=== PATIENT | female | born 1990 | race Caucasian/White ===

== ENCOUNTER → 2017-03-25 11:22 | Outpatient (CLI) | payer OTHER, SELFPAY ==
[2017-03-25 10:40] VITALS: BP 130/82; BMI 41.9
[2017-03-25 12:33] LABS: Absolute Lymphocyte Count 1.52 X10^3/ul (0.83-4.51); Absolute Neutrophil Count 9.9 X10^3/uL (2.0-7.7); Basophil# 0.02 X10^3/uL; Basophil% 0.2 % (0-1); Eosinophil# 0.11 X10^3/uL; Eosinophils% 0.9 % (0-5); Hematocrit 34.1 % (37-47); Hemoglobin 11.1 g/dl (12.0-15.0); Lymphocyte # 1.52 X10^3/ul (4.0); Lymphocyte % 12.5 % (19-41); Mean Corp Hgb Conc 32.6 g/gl (32-36); Mean Corpuscular Hgb 27.5 pg (27.0-32.0); Mean Corpuscular Volume 84.4 fL (81-99); Monocyte# 0.54 X10^3/uL; Monocyte% 4.4 % (0-10); Neutrophil # 9.91 X10^3/uL (2.7-7.7); Neutrophil % 81.6 % (47-70); Platelet Count 310 K/mm3 (150-450); RBC Distribution Width CV 13.7 % (11.6-14.6); RBC Distribution Width SD 41.2 fl (35.1-43.9); Red Blood Count 4.04 M/mm3 (4.2-5.4); White Blood Count 12.2 K/mm3 (4.4-11.0)
[2017-03-25 12:42] LABS: POSITIVE COUNT NO; POSITIVE DIFFERENTIAL NO; POSITIVE MORPHOLOGY NO
[2017-03-25 12:54] LABS: ALB/GLOB Ratio 0.7 RATIO (0.9-2.4); AST(SGOT) 9 U/L (15-37); Alanine Aminotransfer ALT/SGPT 19 U/L (13-56); Albumin, Serum 2.6 g/dL (3.2-5.0); Alkaline Phosphatase 85 U/L (45-117); Anion Gap 10 (5-15); BUN 4 mg/dL (7-18); BUN/Creat Ratio 10.9 RATIO (10-20); Calcium,Total 8.2 mg/dL (8.5-10.1); Chloride 106 mmol/L (98-107); Creatinine, Serum 0.37 mg/dL (0.55-1.02); EST Glomerular Filtration Rate 227 mL/min (>60); Est Glom Filt Rate - Afr Amer 275 mL/min (>60); Globulin 3.9 g/dL (2.2-4.2); Glucose 122 mg/dL (70-110); Glucose Challenge Gest 1H 50g 122 mg/dL (70-140); LDH 174 U/L (84-246); Potassium 3.4 mmol/L (3.5-5.1); Protein, Total 6.5 g/dL (6.4-8.2); Sodium Level 138 mmol/L (136-145); Uric Acid 3.1 mg/dL (2.6-6.0)
== END ==
LOC: LAB 11:24
PROVIDERS: Family Provider Family Medicine; PCP Family Medicine; Visit Provider Obstetrics & Gynecology
DX: O99.350 Diseases of the nervous system complicating pregnancy, unspecified trimester (principal); G43.909 Migraine, unspecified, not intractable, without status migrainosus; Z3A.00 Weeks of gestation of pregnancy not specified
CPT/HCPCS: 36415; 80053; 82950; 83615; 84550; 85025

== ENCOUNTER → 2017-04-15 13:09 | Outpatient (CLI) | payer OTHER, SELFPAY ==
--- NOTE | 2017-04-15 13:11 | US_ITS ---
STUDY: SECOND AND THIRD TRIMESTER OBSTETRICAL ULTRASOUND - LIMITED REASON FOR EXAM: Female, 26 years old. Evaluate growth. LMP: 09/01/2016. PRIOR ULTRASOUND: 01/20/2017. TECHNIQUE: Transabdominal ultrasound evaluation was performed. FINDINGS: There is a single intrauterine fetus. The fetus is in a cephalic presentation. There is demonstrated cardiac activity with a heart rate of 156 bpm. There is a normal amniotic fluid volume. The largest amniotic fluid pocket measures 6.6 cm. The amniotic fluid index (CESAR) is 7.6 cm. The placenta is anterior in location and is not low lying. There are Grade 1 placental changes. The cervix measures 4.1 cm cm in length. There is a complex hypoechoic area in the placenta measuring by 3.3 x 2.9 x 3.5 cm which could represent venous jarrell. BIOMETRY: BPD: 86 mm: 34 weeks, 6 days HC: 308 mm: 34 weeks, 3 days AC: 297 mm: 33 weeks, 5 days FL: 64 mm: 33 weeks, 0 days Age by LMP: 32 weeks, 2 days. KEVIN by LMP: 06/08/2017. age by prior US: 20 weeks, 1 days. KEVIN by prior US: 06/08/2017. age by current US: weeks, 0 days. KEVIN by current US: 05/27/2017. Estimated weight: 2234 grams, +/- 326 grams, 81 percentile. Gender: Indeterminant US/OB Limited With Biometrics IMPRESSION: Single live intrauterine fetus in cephalic presentation with an estimated gestational age of 34 weeks. KEVIN is 05/27/2017. The growth is approximately 12 days ahead when compared to previous examination. Electronically Signed: Amrit Ordaz MD at 12:26 EST Tel , Service support ,
== END ==
PROVIDERS: Family Provider Family Medicine; PCP Family Medicine; Visit Provider Nurse Practitioner Women's Health
DX: O09.93 Supervision of high risk pregnancy, unspecified, third trimester (principal); Z3A.00 Weeks of gestation of pregnancy not specified
CPT/HCPCS: 76816

== ENCOUNTER → 2017-04-15 16:15 | Outpatient (CLI) | payer OTHER, SELFPAY | PROVIDERS: Family Provider Family Medicine; PCP Family Medicine; Visit Provider Nurse Practitioner Women's Health | DX: O09.93 Supervision of high risk pregnancy, unspecified, third trimester (principal); Z3A.00 Weeks of gestation of pregnancy not specified | CPT/HCPCS: 87086 ==

== ENCOUNTER → 2017-04-29 20:58 | Outpatient (CLI) | payer OTHER, SELFPAY | PROVIDERS: Visit Provider Obstetrics & Gynecology | DX: O09.93 Supervision of high risk pregnancy, unspecified, third trimester (principal); Z3A.00 Weeks of gestation of pregnancy not specified | CPT/HCPCS: 87086 ==

== ENCOUNTER → 2017-05-13 10:21 | Outpatient (CLI) | payer OTHER, SELFPAY ==
--- NOTE | 2017-05-13 10:23 | US_ITS ---
STUDY: SECOND AND THIRD TRIMESTER OBSTETRICAL ULTRASOUND - LIMITED REASON FOR EXAM: Female, 26 years old. growth LMP: 09/01/2016 PRIOR ULTRASOUND: 04/20/2017 TECHNIQUE: Transabdominal ultrasound evaluation was performed. FINDINGS: There is a single intrauterine fetus. The fetus is in a cephalic presentation. There is demonstrated cardiac activity with a heart rate of 156 bpm. There is a normal amniotic fluid volume. The largest amniotic fluid pocket measures 5 x 3 cm. The amniotic fluid index (CESAR) is 8 cm. The placenta is anterior in location and is not low lying. There are avascular hypoechoic areas with peripheral rim increased in numbers and distribution since previous exam. There are Grade 2 placental changes. The cervix measures 5.4 cm in length. BIOMETRY: BPD: 9.4 cm: 38 weeks, 3 days HC: 33.6 cm: 38 weeks, 4 days AC: 34.7 cm: 38 weeks, 5 days FL: 7.4 cm: 38 weeks, 1 days Age by LMP: 36 weeks, 2 days. KEVIN by LMP: 06/08/2017. age by prior US: 38 weeks, 0 days. KEVIN by prior US: 05/27/2017. age by current US: 38 weeks, 4 days. KEVIN by current US: 05/23/2017. Estimated weight: 3491 grams, +/- 510 grams, 95 percentile. Gender: Indeterminant US/OB Limited With Biometrics IMPRESSION: 1. Single live intrauterine vertex presentation of 38 week 4 day gestation with an KEVIN of 05/23/2017 and KEVIN by prior ultrasound 05/27/2017. 2. Anterior grade 2 placenta, not low lying. Hypoechoic avascular area within the placenta have increased in distribution and numbers. Possible venous lakes. 3. Estimated weight 3491g and 95 percentile. 4. Normal amniotic fluid index. 5. Cervix length approximately 4 x 4 centimeters. Electronically Signed: Karley Vargas MD at 10:09 EDT , Service support ,
== END ==
PROVIDERS: Family Provider Family Medicine; PCP Family Medicine; Visit Provider Obstetrics & Gynecology
DX: O09.93 Supervision of high risk pregnancy, unspecified, third trimester (principal); Z3A.00 Weeks of gestation of pregnancy not specified
CPT/HCPCS: 76816

== ENCOUNTER → 2017-05-13 16:32 | Outpatient (CLI) | payer OTHER, SELFPAY ==
[2017-05-13 18:13] LABS: Group B Strep DNA By PCR Negative (Negative); Internal Control PASS; Specimen Processing Control PASS
[2017-05-13 18:14] LABS: Probe Check PASS
== END ==
PROVIDERS: Visit Provider Obstetrics & Gynecology
DX: O09.93 Supervision of high risk pregnancy, unspecified, third trimester (principal); Z3A.00 Weeks of gestation of pregnancy not specified
CPT/HCPCS: 87081; 87653

== ENCOUNTER → 2017-05-20 10:11 | Outpatient (CLI) | payer OTHER, SELFPAY ==
[2017-05-20 11:15] LABS: Absolute Lymphocyte Count 1.42 X10^3/ul (0.83-4.51); Absolute Neutrophil Count 10.4 X10^3/uL (2.0-7.7); Basophil# 0.02 X10^3/uL; Basophil% 0.2 % (0-1); Eosinophil# 0.14 X10^3/uL; Eosinophils% 1.1 % (0-5); Hematocrit 35.3 % (37-47); Hemoglobin 11.5 g/dl (12.0-15.0); Lymphocyte # 1.42 X10^3/ul (4.0); Lymphocyte % 11.4 % (19-41); Mean Corp Hgb Conc 32.6 g/gl (32-36); Mean Corpuscular Volume 82.9 fL (81-99); Mean Platelet Vol. 9.9 fl (6.2-12.0); Monocyte# 0.45 X10^3/uL; Monocyte% 3.6 % (0-10); Neutrophil # 10.41 X10^3/uL (2.7-7.7); Neutrophil % 83.3 % (47-70); POSITIVE COUNT NO; POSITIVE DIFFERENTIAL NO; POSITIVE MORPHOLOGY NO; Platelet Count 297 K/mm3 (150-450); RBC Distribution Width SD 40.9 fl (35.1-43.9); Red Blood Count 4.26 M/mm3 (4.2-5.4); White Blood Count 12.5 K/mm3 (4.4-11.0)
[2017-05-20 11:24] LABS: Protein, Urine (Random) 27.1 mg/dL (<11.9); Protein:Creat Ratio 127 mg/g CRE (0-200)
[2017-05-20 11:45] LABS: ALB/GLOB Ratio 0.6 RATIO (0.9-2.4); AST(SGOT) 13 U/L (15-37); Alanine Aminotransfer ALT/SGPT 18 U/L (13-56); Albumin, Serum 2.4 g/dL (3.2-5.0); Alkaline Phosphatase 133 U/L (45-117); Anion Gap 8 (5-15); BUN 5 mg/dL (7-18); BUN/Creat Ratio 10.5 RATIO (10-20); Calcium,Total 8.4 mg/dL (8.5-10.1); Chloride 105 mmol/L (98-107); Creatinine, Serum 0.48 mg/dL (0.55-1.02); EST Glomerular Filtration Rate 168 mL/min (>60); Est Glom Filt Rate - Afr Amer 203 mL/min (>60); Globulin 4.3 g/dL (2.2-4.2); Glucose 111 mg/dL (74-106); LDH 193 U/L (84-246); Potassium 3.7 mmol/L (3.5-5.1); Protein, Total 6.7 g/dL (6.4-8.2); Sodium Level 139 mmol/L (136-145); Uric Acid 3.4 mg/dL (2.6-6.0)
== END ==
PROVIDERS: Nurse Practitioner Women's Health; Family Provider Family Medicine; PCP Family Medicine; Visit Provider Obstetrics & Gynecology
DX: O12.10 Gestational proteinuria, unspecified trimester (principal); Z3A.00 Weeks of gestation of pregnancy not specified
CPT/HCPCS: 36415; 80053; 82570; 83615; 84156; 84550; 85025

== ENCOUNTER 2017-05-25 06:07 | Inpatient (IN) | payer OTHER, SELFPAY ==
[2017-05-25] MEDS: Lactated Ringers 1,000 ML 50 ML IV (06:43)
[2017-05-25 07:24] LABS: Hematocrit 35.4 % (37-47); Hemoglobin 11.3 g/dl (12.0-15.0); Mean Corp Hgb Conc 31.9 g/gl (32-36); Mean Corpuscular Hgb 26.3 pg (27.0-32.0); Mean Corpuscular Volume 82.3 fL (81-99); Mean Platelet Vol. 9.9 fl (6.2-12.0); Platelet Count 299 K/mm3 (150-450); RBC Distribution Width CV 14.2 % (11.6-14.6); RBC Distribution Width SD 42.4 fl (35.1-43.9); White Blood Count 15.4 K/mm3 (4.4-11.0)
[2017-05-25 07:25] VITALS: BMI 44.5
[2017-05-25 07:28] LABS: Scan Indicated on CBC? Y/N NO
[2017-05-25] MEDS: Oxytocin 30 units/NS 500 ml 30 UNITS/500 ML IV.SOLN 334 UNITS IV (07:37)
[2017-05-25] MEDS: Methylergonovine 0.2 MG/ML Ampul IM (07:42)
[2017-05-25] MEDS: miSOPROStol 200 MCG Tablet 1000 MCG RECTAL (07:44)
[2017-05-25] MEDS: Oxytocin 30 units/NS 500 ml 30 UNITS/500 ML IV.SOLN 167 UNITS IV (08:07)
[2017-05-25 10:00] VITALS: BP 138/72; PULSE 107; RESP 16; TEMP 36.6; O2SAT 97
[2017-05-25 14:00] VITALS: BP 134/71; PULSE 80; RESP 20; TEMP 37.3; O2SAT 97
--- NOTE | 2017-05-25 15:27 | PCM.HP.OB ---
- Problem List (1) Proteinuria affecting Status: Acute Qualifiers: (2) with history of infertility Status: Acute Qualifiers: (3) PCOS (polycystic ovarian syndrome) Status: Acute (4) Asymptomatic bacteriuria during Status: Acute Comment: repeat urine culture neg (5) Maternal asthma complicating Status: Acute Comment: per pcp- qvar daily, albuterol PRN (6) Adult body mass index 40 and over Status: Acute Comment: weekly nsts after 32 weeks and growth us every 4 weeks (7) Supervision of high risk in third trimester Status: Acute Comment: PRR KEVIN 06/08/17 girl Vivian Leung arina History Date of Admission: 05/25/17 Final KEVIN: 06/08/17 Gestational age: 38 Weeks and 0 Days History of this : 26 yo @ 38 weeks presents IAL and delivered precipitously Pertinent Past Medical History: Past Medical History (Last Reviewed 05/20/17 @ 09:44 by Isabel Man) Asthma (Acute) Back problem (Acute) Infertility (Acute) PCOS (polycystic ovarian syndrome) (Acute) All Active Problems (Last Reviewed 05/20/17 @ 09:44 by Isabel Man) Proteinuria affecting (Acute) with history of infertility (Acute) PCOS (polycystic ovarian syndrome) (Acute) Asymptomatic bacteriuria during (Acute) Maternal asthma complicating (Acute) Migraine (Acute) Adult body mass index 40 and over (Acute) Supervision of high risk in third trimester (Acute) Mom's Labs & Results 05/25/17 05/25/17 06:43 06:43 WBC 15.4 H RBC 4.30 Hgb 11.3 L Hct 35.4 L MCV 82.3 MCH 26.3 L MCHC 31.9 L RDW 14.2 RDW Differential 42.4 Plt Count 299 MPV 9.9 Blood Type O POSITIVE Antibody Screen NEGATIVE Course Did the patient receive Yes care? Labs Blood Type: O RH: POSITIVE RPR/VDRL/Syphilis Nonreactive Rubella status Immune HbSAg Negative Date Done: 11/04/16 Chlamydia Negative Gonorrhea Negative HIV/AIDS Non-Reactive Group B Strep: Negative Current Obstetrical History Gestational Diabetes No Incompetent Cervix No Infertility Yes: took 7 years to get IUGR No Macrosomia No Hypertension/Pre-eclampsia Yes: high blood pressures, no meds Placenta Previa/Abruption No PTL/PROM No Uterine anomaly No Oligohydramnios No Polyhydramnios No Multiple gestation No Past Medical History Asthma Yes Diabetes No Hypertension No Heart disease No Mitral valve prolapse No Neurologic/Seizure disorder/ No Migraines Kidney disease No Liver disease No Varicosities No Clotting disorders/Hx of DVT No Thyroid Dysfunction No Other medical diseases No Psychiatric disorders No Major trauma No Abnormal PAP smear No Sleep apnea No Mammogram in the last 2 years No Social History Marital Status: Alleged father Chandu Hx Smoking No Smoking Status Former smoker Allergies No Known Allergies Allergy (Verified 05/25/17 07:38) Current Medications Acetaminophen (Tylenol) 1,000 mg PO Q8H PRN PRN PRN Reason: MILD PAIN (1-3/10)/Temp>99.6F Bisacodyl (Dulcolax) 10 mg RECTAL UD PRN PRN Reason: If no BM Dibucaine (Dibucaine) 1 applic TOPICAL TID PRN PRN; Protocol PRN Reason: Discomfort Hydrocortisone (Hytone) 1 applic TOPICAL TID PRN PRN; Protocol PRN Reason: Discomfort Lactated Ringer's () 1,000 mls @ 0 mls/hr IV .Q0M RODRIGUE PRN Reason: KVO Methylergonovine Maleate (Methergine) 0.2 mg IM X1 PRN PRN Reason: Excess bleeding/uterine atony Last Admin: 05/25/17 07:42 Dose: 0.2 mg Naproxen (Naprosyn) 250 - 500 mg PO Q8H PRN PRN PRN Reason: MILD PAIN (1-3/10) Ondansetron HCl (Zofran) 4 mg IV Q4H PRN PRN PRN Reason: Nausea Oxycodone HCl (Oxyir) 5 - 10 mg PO Q4H PRN PRN PRN Reason: MOD-SEVERE PAIN (4-10/10) Promethazine HCl (Phenergan Iv) 12.5 mg IV Q4H PRN PRN PRN Reason: NAUSEA/VOMITING Senna/Docusate Sodium (Senokot-S, Jayla-Colace) 1 - 2 tablet PO DAILY PRN PRN PRN Reason: Constipation Simethicone (Mylicon) 80 mg PO PCHS PRN PRN Reason: Indigestion/Stomach pain Sodium Chloride () 5 - 15 ml IV UD PRN PRN Reason: SALINE FLUSH Smoking Status: Never smoker Alcohol: None Drug Use: none Number of Fetus(es): 1 - 140s moderate variability occasional variable Review of Systems Constitutional: Denies: Chills, Fever, Weight Change HEENT: Denies: Head Aches, Sinus Congestion, Sinus Drainage Cardiovascular: Denies: Chest Pain, Palpitations Respiratory: Denies: Cough, Shortness of breath at rest, Sputum production Gastrointestinal: Reports: Abdominal Pain. Denies: Nausea, Vomiting Genitourinary: Denies: Dysuria Gynecological: Reports: Vaginal bleeding, Vaginal discharge Musculoskeletal: Denies: Joint Pain, Joint Tenderness Skin: Denies: Rash, Wounds Neurological: Denies: Numbness, Tingling, Focal weakness Psychiatric: Denies: Anxiety, Depression Hematologic/ Lymphatic: Denies: Easy Bruising, Easy Bleeding Physical Exam Vitals: Vital Signs Temp Pulse Resp BP Pulse Ox 97.8 F 107 H 16 138/72 H 97 05/25/17 10:00 05/25/17 10:00 05/25/17 10:00 05/25/17 10:00 05/25/17 10:00 General: Alert, Oriented x3, No apparent distress Cardiovascular: Regular rate Lungs: Normal air movement Abdomen: Soft, Non Tender, Gravid Extremities:: No edema Estimated gestational size: Appropriate for gestational size Cervix Dilation (cm): 7 Station: 0 Effacement (%): 90 Assessment/Plan 26 yo @ 38 weeks IAL precipitous delivery pudendal block placed and delivered with mild hemorrhage
--- NOTE | 2017-05-25 15:33 | PCM.OB.VAG ---
- Problem List (1) Proteinuria affecting Status: Acute Qualifiers: (2) with history of infertility Status: Acute Qualifiers: (3) PCOS (polycystic ovarian syndrome) Status: Acute (4) Asymptomatic bacteriuria during Status: Acute Comment: repeat urine culture neg (5) Maternal asthma complicating Status: Acute Comment: per pcp- qvar daily, albuterol PRN (6) Adult body mass index 40 and over Status: Acute Comment: weekly nsts after 32 weeks and growth us every 4 weeks (7) Supervision of high risk in third trimester Status: Acute Comment: PRR KEVIN 06/08/17 girl Vivian Leung arina Vaginal Delivery Maternal Presentation: Active Labor precipitous delivery 38 weeks Amniotic Membrane Rupture Type: Spontaneous at home Amniotic Fluid Description: Clear Final KEVIN: 06/08/17 Gestational age: 38 Weeks and 0 Days Date of Procedure: 05/25/17 Pre-Operative Diagnosis: ial Post-Operative Diagnosis: same Surgery/ Procedure Performed: Spontaneous Vaginal Delivery Type of Anesthesia: Pudendal block with 1% lidocaine Description of Procedure: Patient precipitously proceeded to complete and was having discomfort and requested pudendal block. Vagina was prepped with Betadine and bilateral ischial spines were identified and 2 cm medial and posterior to the initial spines 10 cc of lidocaine was injected into the area without complication. Patient began pushing and delivered the head in the KARTHIKEYAN presentation. The head was delivered atraumatically . The anterior and posterior shoulders delivered without complication followed by the rest of the infant and the was placed on the maternal abdomen. Delayed cord clamping was employed for approximately 60 seconds. Cord was clamped and cut and gentle traction was applied to the cord and the placenta delivered spontaneously immediately following it was noted to be intact with three-vessel cord. The perineum and vagina were inspected and noted to have no laceration. Mild hemorrhage was encountered and both Methergine and Cytotec were given and bimanual massage was employed. EBL was 700 cc. Patient and tolerated delivery well. Presentation: KARTHIKEYAN
[2017-05-25 15:57] VITALS: BP 133/71; PULSE 106; RESP 16; TEMP 37.5; O2SAT 98
[2017-05-25] MEDS: Acetaminophen 500 MG Tablet 1000 MG PO (19:14)
[2017-05-25 20:30] VITALS: BP 123/67; PULSE 104; RESP 16; TEMP 36.2; O2SAT 98
[2017-05-26 00:30] VITALS: BP 116/55; PULSE 93; RESP 16; TEMP 36.2; O2SAT 98
[2017-05-26 04:45] VITALS: BP 120/66; PULSE 98; RESP 18; TEMP 36.2; O2SAT 97
[2017-05-26 07:30] VITALS: BP 113/68; PULSE 91; RESP 16; TEMP 36.3; O2SAT 95
--- NOTE | 2017-05-26 07:49 | PCM.PN.OB ---
Subjective: Doing well. Denies CP, SOB, NV. Denies pain. - Physical Exam General: Alert, Oriented x3 Abdomen: Soft, Non Tender, - - FF below U Vital Signs Temp Pulse Resp BP Pulse Ox 97.4 F L 91 16 113/68 95 05/26/17 07:30 05/26/17 07:30 05/26/17 07:30 05/26/17 07:30 05/26/17 07:30 Oxygen Delivery Method Room Air Weight: 293 lb Body Mass Index (BMI) 44.5 Intake and Output for Last 24 Hours 05/24/17 05/25/17 05/26/17 23:59 23:59 23:59 Output Total 50 / 50 Balance -50 / -50 Laboratory Tests Past 24 Hrs 05/25/17 06:43 Blood Type O POSITIVE Antibody Screen NEGATIVE Medical Necessity - Tobacco Use Smoking Status: Never smoker Assessment/Plan PPD #1 Routine care. . Doing well. Plans home today.
--- NOTE | 2017-05-26 07:53 | DCINST_ITS ---
Discharge Diet: No Restrictions Discharge Activity: Return to Normal Activity, May not drive while taking narcotic pain medications., May Shower May resume sexual activity in: 4-6 weeks Additional Activity Instructions:: Nothing in the vagina for 4-6 weeks. You may return to work/school in 6 weeks. Call your doctor if your incision/area has: Continuous Slow Oozing, Sudden Increased Bleeding, Increased Pain/ Swelling, Increased Redness, Foul Smelling Discharge Additional Instructions: If you experience any of the following, contact your healthcare provider. * Bleeding that soaks a pad every hour for 2 hours * Fever 100.4 or higher * Unrelieved incision or abdominal pain * Swelling, redness, discharge or bleeding from your incision or episiotomy site * Your incision begins to separate * Problems urinating (including inability to urinate or burning while urinating) . * Visual changes * Severe headache * Flu-like symptoms * Pain or redness in one of both of your breasts * Pain, warmth, tenderness or swelling in your legs, especially the calf area * Frequent nausea and vomiting * Symptoms of depression or anxiety If you experience any of the following, call 911 or go to the nearest Emergency Room. * Chest pain * Problems breathing * Seizure activity * Partial or complete paralysis of a body part, slurred speech, weakness or drooping of the face, or a sudden inability to walk or hold your balance Allergies/Adverse Reactions: Allergies No Known Allergies Allergy (Verified 05/25/17 07:38) Medications to take at Discharge albuterol sulfate HFA 90 mcg/actuation aerosol inhaler 1 puff INHALATION Q6H 09/06 beclomethasone dipropionate 80 mcg/actuation aerosol inhaler 1 puff INHALATION QAM 01/27/17 vitamin,calcium,xkjlrtoe-oatf-mhchh acid tablet 1 tab PO QDAY 01/27/17 When: Call to make an appointment with your doctor in 6 weeks. If you had elevated Blood Pressure or 4th degree laceration you will need to be seen in 2 weeks. Primary Care Physician: Flor Elizondo PA-C [Primary Care Provider] -
--- NOTE | 2017-05-26 07:53 | PCM.DCVAG ---
Discharge Diet: No Restrictions Discharge Activity: Return to Normal Activity, May not drive while taking narcotic pain medications., May Shower May resume sexual activity in: 4-6 weeks Additional Activity Instructions:: Nothing in the vagina for 4-6 weeks. You may return to work/school in 6 weeks. Call your doctor if your incision/area has: Continuous Slow Oozing, Sudden Increased Bleeding, Increased Pain/ Swelling, Increased Redness, Foul Smelling Discharge Additional Instructions: If you experience any of the following, contact your healthcare provider. Bleeding that soaks a pad every hour for 2 hours Fever 100.4 or higher Unrelieved incision or abdominal pain Swelling, redness, discharge or bleeding from your incision or episiotomy site Your incision begins to separate Problems urinating (including inability to urinate or burning while urinating). Visual changes Severe headache Flu-like symptoms Pain or redness in one of both of your breasts Pain, warmth, tenderness or swelling in your legs, especially the calf area Frequent nausea and vomiting Symptoms of depression or anxiety If you experience any of the following, call 911 or go to the nearest Emergency Room. Chest pain Problems breathing Seizure activity Partial or complete paralysis of a body part, slurred speech, weakness or drooping of the face, or a sudden inability to walk or hold your balance Allergies/Adverse Reactions: Allergies No Known Allergies Allergy (Verified 05/25/17 07:38) Medications to take at Discharge albuterol sulfate HFA 90 mcg/actuation aerosol inhaler 1 puff INHALATION Q6H 01/27/17 beclomethasone dipropionate 80 mcg/actuation aerosol inhaler 1 puff INHALATION QAM 01/27/17 vitamin,calcium,gfnfryab-zcev-ppemk acid tablet 1 tab PO QDAY 01/27/17 When: Call to make an appointment with your doctor in 6 weeks. If you had elevated Blood Pressure or 4th degree laceration you will need to be seen in 2 weeks. Primary Care Physician: Flor Elizondo PA-C [Primary Care Provider] -
--- NOTE | 2017-05-26 07:53 | PCM.DC.SUM ---
Discharge Date and Diagnosis Date of Admission: 05/25/17 Hospital Course and Treatment Consultations 05/25/17 06:45 Consult: Anesthesia Routine Comment: Reason For Exam: labor Summary of Care Provided: The patient is a 26 year old F [] Discharge Diet: No Restrictions Discharge Activity: Return to Normal Activity, May not drive while taking narcotic pain medications., May Shower May resume sexual activity in: 4-6 weeks Additional Activity Instructions:: Nothing in the vagina for 4-6 weeks. You may return to work/school in 6 weeks. Call your doctor if your incision/area has: Continuous Slow Oozing, Sudden Increased Bleeding, Increased Pain/ Swelling, Increased Redness, Foul Smelling Discharge Home Medications: Medications to take at Discharge albuterol sulfate HFA 90 mcg/actuation aerosol inhaler 1 puff INHALATION Q6H 01/27/17 beclomethasone dipropionate 80 mcg/actuation aerosol inhaler 1 puff INHALATION QAM 01/27/17 vitamin,calcium,xceeijxe-xkrf-zslge acid tablet 1 tab PO QDAY 01/27/17 Primary Care Physician: Flor Elizondo PA-C [Primary Care Provider] - Medical Necessity - Tobacco Use Smoking Status: Never smoker Meaningful Use Info Meaningful Use Diagnoses (Choose all that apply): None applicable
--- NOTE | 2017-05-26 07:56 | DS.PCM_ITS ---
Discharge Date and Diagnosis Date of Admission: 05/25/17 Hospital Course and Treatment Consultations 05/25/17 06:45 Consult: Anesthesia Routine Comment: Reason For Exam: labor Summary of Care Provided: The patient is a 26 year old F [] Discharge Diet: No Restrictions Discharge Activity: Return to Normal Activity, May not drive while taking narcotic pain medications., May Shower May resume sexual activity in: 4-6 weeks Additional Activity Instructions:: Nothing in the vagina for 4-6 weeks. You may return to work/school in 6 weeks. Call your doctor if your incision/area has: Continuous Slow Oozing, Sudden Increased Bleeding, Increased Pain/ Swelling, Increased Redness, Foul Smelling Discharge Home Medications: Medications to take at Discharge albuterol sulfate HFA 90 mcg/actuation aerosol inhaler 1 puff INHALATION Q6H 09/06 beclomethasone dipropionate 80 mcg/actuation aerosol inhaler 1 puff INHALATION QAM 01/27/17 vitamin,calcium,jnrhqwzd-tzmo-mutmz acid tablet 1 tab PO QDAY 01/27/17 Primary Care Physician: Flor Elizondo PA-C [Primary Care Provider] - Medical Necessity - Tobacco Use Smoking Status: Never smoker Meaningful Use Info Meaningful Use Diagnoses (Choose all that apply): None applicable
[2017-05-26 11:09] VITALS: BP 139/80; PULSE 105; RESP 16; TEMP 36.7; O2SAT 97
== END 2017-05-26 12:00 | disposition home or self-care (01) | DRG 774 ==
PROVIDERS: Admitting Provider Obstetrics & Gynecology; Family Provider Family Medicine; PCP Family Medicine; Visit Provider Obstetrics & Gynecology
DX: O42.02 Full-term premature rupture of membranes, onset of labor within 24 hours of rupture (principal); O72.1 Other immediate postpartum hemorrhage; O12.13 Gestational proteinuria, third trimester; O62.3 Precipitate labor; O34.83 Maternal care for other abnormalities of pelvic organs, third trimester; E28.2 Polycystic ovarian syndrome; O99.52 Diseases of the respiratory system complicating childbirth; J45.998 Other asthma; Z37.0 Single live birth; Z3A.38 38 weeks gestation of pregnancy; Z87.891 Personal history of nicotine dependence; Z87.59 Personal history of other complications of pregnancy, childbirth and the puerperium
CPT/HCPCS: 59050; 85027; 86850; 86900; 99218; J7120; G0378

== ENCOUNTER 2017-06-01 19:30 | Outpatient (CLI) | payer OTHER, SELFPAY | END 2017-06-01 20:45 | disposition home or self-care (01) | LOC: WPOUT 20:01 → WP 20:02 | PROVIDERS: Family Provider Family Medicine; PCP Family Medicine; Visit Provider Obstetrics & Gynecology | DX: Z39.1 Encounter for care and examination of lactating mother (principal) | CPT/HCPCS: 96152 ==

== ENCOUNTER → 2019-01-09 13:36 | Outpatient (CLI) | payer BC, SELFPAY ==
[2019-01-09 13:36] VITALS: BMI 41.9
[2019-01-09 17:42] LABS: Chlamydia Trachomatis by PCR Negative (Negative); Neisserai gonorrhoeae by PCR Negative (Negative); Probe Check PASS; Sample Adequacy Control PASS; Specimen Processing Control PASS
== END ==
LOC: LABSPEC 13:39
PROVIDERS: Family Provider Family Medicine; PCP Family Medicine; Referring Provider Advanced Practice Midwife; Visit Provider Advanced Practice Midwife
DX: Z11.3 Encounter for screening for infections with a predominantly sexual mode of transmission (principal)
CPT/HCPCS: 87491; 87591

== ENCOUNTER → 2019-01-23 11:33 | Outpatient (CLI) | payer BC, SELFPAY ==
[2019-01-09 13:36] VITALS: BMI 41.9
[2019-01-23 14:01] LABS: Absolute Lymphocyte Count 1.61 X10^3/uL (0.83-4.51); Absolute Neutrophil Count 7.2 X10^3/uL (2.0-7.7); Basophil# 0.03 X10^3/uL; Basophil% 0.3 % (0-1); Eosinophil# 0.35 X10^3/uL; Eosinophils% 3.6 % (0-5); Hematocrit 42.4 % (37-47); Hemoglobin 13.7 g/dL (12.0-15.0); Lymphocyte # 1.61 X10^3/ul (4.0); Lymphocyte % 16.5 % (19-41); Mean Corp Hgb Conc 32.3 g/dL (32-36); Mean Corpuscular Hgb 27.5 pg (27.0-32.0); Mean Corpuscular Volume 85.1 fL (81-99); Mean Platelet Vol. 10.1 fl (6.2-12.0); Monocyte# 0.57 X10^3/uL; Monocyte% 5.8 % (0-10); NRBC Flagged by Analyzer 0 % (0-5); Neutrophil # 7.17 X10^3/uL (2.7-7.7); Neutrophil % 73.5 % (47-70); Platelet Count 316 K/mm3 (150-450); RBC Distribution Width CV 13.2 % (11.6-14.6); RBC Distribution Width SD 41.4 fl (35.1-43.9); Red Blood Count 4.98 M/mm3 (4.2-5.4); White Blood Count 9.8 K/mm3 (4.4-11.0)
[2019-01-23 14:04] LABS: Amphetamine Urine VISTA NEGATIVE (<1000 ng/mL); Barbiturate Urine VISTA NEGATIVE (< 200 ng/mL); Benzodiazepine Urine VISTA NEGATIVE (< 200 ng/mL); Cocaine Urine VISTA NEGATIVE (< 300 ng/mL); Ecstacy Urine VISTA NEGATIVE (< 500 ng/mL); Methadone Urine VISTA NEGATIVE (< 300 ng/mL); PCP Urine VISTA NEGATIVE (< 25 ng/mL); THC Urine VISTA POSITIVE (< 50 ng/mL); Vista UDS pH Range 6
[2019-01-23 14:05] LABS: Color, Urine Yellow (Yellow); Glucose, Dipstick Normal (Normal); Ketone-Dipstick Negative (Negative); Leukocyte Esterase-Dipstick 100 /ul (Negative); Nitrite-Dipstick Negative (Negative); Occult Blood-Urine Negative /ul (Negative); Protein-Dipstick 15 mg/dl (Negative); Specific Gravity, Urine 1.015 (1.002-1.030); Urine Bilirubin Dipstick Negative (Negative); Urine Clarity Sl. Cloudy (Clear); Urine Urobilinogen 1 mg/dl (Normal)
[2019-01-23 14:26] LABS: Glucose Challenge Gest 1H 50g 101 mg/dL (70-140); Thyroid Stim Hormone (TSH) 0.94 uIU/mL (0.358-3.74)
[2019-01-23 18:40] LABS: HIV - WCH Non-Reactive (Nonreactive); Hepatitis B Surface Antigen Non-Reactive (Nonreactive); Hepatitis C Antibody Non-Reactive (Nonreactive); Rubella IgG 160.1 IU/mL
[2019-01-24 05:11] LABS: Prenatal RPR NONREACTIVE (NONREACTIVE)
== END ==
LOC: WOBLAB 11:35
PROVIDERS: Visit Provider Advanced Practice Midwife
DX: Z34.81 Encounter for supervision of other normal pregnancy, first trimester (principal)
CPT/HCPCS: 36415; 80307; 81002; 82950; 84443; 85025; 86703; 86762; 86803; 87340

== ENCOUNTER → 2019-06-29 | Outpatient (CLI) | payer BC, SELFPAY ==
[2019-01-09 13:36] VITALS: BMI 41.9
[2019-06-29 15:43] LABS: Hematocrit 38.2 % (37-47); Hemoglobin 12.3 g/dL (12.0-15.0); Mean Corp Hgb Conc 32.2 g/dL (32-36); Mean Corpuscular Hgb 27.8 pg (27.0-32.0); Mean Corpuscular Volume 86.4 fL (81-99); Mean Platelet Vol. 10.3 fl (6.2-12.0); Platelet Count 274 K/mm3 (150-450); RBC Distribution Width CV 13.3 % (11.6-14.6); RBC Distribution Width SD 41.2 fl (35.1-43.9); Red Blood Count 4.42 M/mm3 (4.2-5.4); White Blood Count 13.9 K/mm3 (4.4-11.0)
[2019-06-29 15:55] LABS: Glucose Challenge Gest 1H 50g 96 mg/dL (70-140)
== END | disposition home or self-care (01) ==
LOC: LABSPEC 15:17
PROVIDERS: Referring Provider Obstetrics & Gynecology; Visit Provider Obstetrics & Gynecology
DX: Z34.83 Encounter for supervision of other normal pregnancy, third trimester (principal)
CPT/HCPCS: 82950; 85027

== ENCOUNTER → 2019-07-13 11:18 | Outpatient (CLI) | payer BC, SELFPAY ==
[2019-01-09 13:36] VITALS: BMI 41.9
[2019-07-13 11:58] LABS: Hematocrit 36.5 % (37-47); Hemoglobin 11.7 g/dL (12.0-15.0); Mean Corp Hgb Conc 32.1 g/dL (32-36); Mean Corpuscular Hgb 27.1 pg (27.0-32.0); Mean Corpuscular Volume 84.7 fL (81-99); Mean Platelet Vol. 9.8 fl (6.2-12.0); Platelet Count 301 K/mm3 (150-450); RBC Distribution Width CV 13.2 % (11.6-14.6); RBC Distribution Width SD 41.2 fl (35.1-43.9); Red Blood Count 4.31 M/mm3 (4.2-5.4)
[2019-07-13 12:02] LABS: Prothrombin Time (Protime)PT. 12.3 SECONDS (11.7-14.9)
[2019-07-13 12:03] LABS: Partial Thromboplast Time 31.5 Seconds (24.1-36.2)
[2019-07-13 12:07] LABS: AST(SGOT) 12 U/L (15-37); Alanine Aminotransfer ALT/SGPT 17 U/L (13-56); Creatinine, Serum 0.41 mg/dL (0.55-1.02); EST Glomerular Filtration Rate 195 mL/min (>60); Est Glom Filt Rate - Afr Amer 236 mL/min (>60); Uric Acid 2.7 mg/dL (2.6-6.0)
[2019-07-15 11:43] LABS: 24 Hour Urine Protein 147.2 mg/24HR (<150 MG/24HR); 24HR. UA Prot. Total Volume 1350 mL; Urine Protein (24 Hour) 10.9 mg/dL (<11.9)
== END ==
LOC: WOBLAB 11:19
PROVIDERS: Visit Provider Obstetrics & Gynecology
DX: O14.93 Unspecified pre-eclampsia, third trimester (principal); Z3A.00 Weeks of gestation of pregnancy not specified
CPT/HCPCS: 36415; 82565; 84156; 84450; 84460; 84550; 85027; 85610; 85730

== ENCOUNTER → 2019-08-08 | Outpatient (CLI) | payer BC, SELFPAY ==
[2019-01-09 13:36] VITALS: BMI 41.9
== END | disposition home or self-care (01) ==
LOC: LABSPEC 16:55
PROVIDERS: Visit Provider Obstetrics & Gynecology
DX: Z36.85 Encounter for antenatal screening for Streptococcus B (principal)
CPT/HCPCS: 87081

== ENCOUNTER → 2019-08-15 15:49 | Outpatient (CLI) | payer BC, SELFPAY ==
[2019-01-09 13:36] VITALS: BMI 41.9
[2019-08-15 16:27] LABS: Hematocrit 37.1 % (37-47); Hemoglobin 12.1 g/dL (12.0-15.0); Mean Corp Hgb Conc 32.6 g/dL (32-36); Mean Corpuscular Hgb 26.9 pg (27.0-32.0); Mean Corpuscular Volume 82.6 fL (81-99); Platelet Count 301 K/mm3 (150-450); RBC Distribution Width SD 40.6 fl (35.1-43.9); Red Blood Count 4.49 M/mm3 (4.2-5.4); White Blood Count 13.9 K/mm3 (4.4-11.0)
[2019-08-15 16:34] LABS: Prothrombin Time (Protime)PT. 12.4 SECONDS (11.7-14.9)
[2019-08-15 16:35] LABS: Partial Thromboplast Time 31.9 Seconds (24.1-36.2)
[2019-08-15 16:38] LABS: AST(SGOT) 11 U/L (15-37); Alanine Aminotransfer ALT/SGPT 15 U/L (13-56); Creatinine, Serum 0.53 mg/dL (0.55-1.02); EST Glomerular Filtration Rate 147 mL/min (>60); Est Glom Filt Rate - Afr Amer 177 mL/min (>60); Uric Acid 4.1 mg/dL (2.6-6.0)
== END ==
LOC: WOBLAB 15:51
PROVIDERS: Visit Provider Obstetrics & Gynecology
DX: O13.3 Gestational [pregnancy-induced] hypertension without significant proteinuria, third trimester (principal); Z3A.00 Weeks of gestation of pregnancy not specified
CPT/HCPCS: 36415; 82565; 82570; 84156; 84450; 84460; 84550; 85027; 85610; 85730

== ENCOUNTER 2019-08-20 17:50 | Outpatient (CLI) | payer BC, SELFPAY ==
[2019-01-09 13:36] VITALS: BMI 41.9
[2019-08-20 18:02] VITALS: BMI 43.1
--- NOTE | 2019-08-25 10:17 | OB.TRI.NOTE ---
History of Present Illness Date of Service: 08/20/19 Was patient seen by the physician?: No Reason For Visit: RULE OUT LABOR Date of Service: 08/20/19 Final KEVIN: 09/05/19 Gestational age: 37 Weeks and 4 Days History of Present Illness: 37+ week intrauterine presents with some contractions. care has been unremarkable. Allergies No Known Allergies Allergy (Verified 05/25/17 07:38) - Pertinent Past Medical History Medical History: Past Medical History (Last Reviewed 05/20/17 @ 09:44 by Isabel Man) Asthma Back problem Infertility PCOS (polycystic ovarian syndrome) NST - FHR Rate Baby A NST Reactive:: Yes FHR Category:: Category I Impression/Plan 37+ week intrauterine with false labor. No change after observation. Will discharge to home with routine instructions.
== END 2019-08-20 18:32 | disposition home or self-care (01) ==
LOC: WPOUT 18:00 → OBT 18:01
PROVIDERS: Visit Provider Obstetrics & Gynecology
DX: O47.1 False labor at or after 37 completed weeks of gestation (principal); O99.513 Diseases of the respiratory system complicating pregnancy, third trimester; J45.909 Unspecified asthma, uncomplicated; O99.283 Endocrine, nutritional and metabolic diseases complicating pregnancy, third trimester; E28.2 Polycystic ovarian syndrome; Z3A.37 37 weeks gestation of pregnancy
CPT/HCPCS: 59025; 59050; 99218; G0378

== ENCOUNTER → 2019-08-22 18:05 | Outpatient (CLI) | payer BC, SELFPAY ==
[2019-08-20 18:02] VITALS: BMI 43.1
== END ==
PROVIDERS: Visit Provider Obstetrics & Gynecology
DX: Z11.59 Encounter for screening for other viral diseases (principal)
CPT/HCPCS: 87635; G2023; U0003

== ENCOUNTER 2019-08-30 07:05 | Inpatient (IN) | payer BC, SELFPAY ==
[2019-08-30] VITALS (28 sets, daily range): BP systolic 119–232; BP diastolic 55–148; PULSE 80–123; RESP 16; TEMP 36.5–37.1; O2SAT 93–99; BMI 45.4
[2019-08-30] MEDS: Lactated Ringers 1,000 ML 50 ML IV (08:00)
[2019-08-30 08:19] LABS: Absolute Lymphocyte Count 1.59 X10^3/uL (0.83-4.51); Absolute Neutrophil Count 7.8 X10^3/uL (2.0-7.7); Basophil# 0.03 X10^3/uL; Basophil% 0.3 % (0-1); Eosinophil# 0.18 X10^3/uL; Eosinophils% 1.8 % (0-5); Hemoglobin 11.4 g/dL (12.0-15.0); Lymphocyte # 1.59 X10^3/ul (4.0); Lymphocyte % 15.6 % (19-41); Mean Corp Hgb Conc 31.7 g/dL (32-36); Mean Corpuscular Hgb 26.5 pg (27.0-32.0); Mean Corpuscular Volume 83.5 fL (81-99); Mean Platelet Vol. 10.2 fl (6.2-12.0); Monocyte# 0.53 X10^3/uL; Monocyte% 5.2 % (0-10); NRBC Flagged by Analyzer 0 % (0-5); Neutrophil # 7.81 X10^3/uL (2.7-7.7); Neutrophil % 76.3 % (47-70); Platelet Count 277 K/mm3 (150-450); RBC Distribution Width CV 14.1 % (11.6-14.6); RBC Distribution Width SD 42.1 fl (35.1-43.9); Red Blood Count 4.31 M/mm3 (4.2-5.4); White Blood Count 10.2 K/mm3 (4.4-11.0)
[2019-08-30] MEDS: Oxytocin 30 units/NS 500 ml 30 UNITS/500 ML IV.SOLN IV (08:49)
[2019-08-30] MEDS: Lactated Ringers 500 ML 999 ML IV (09:00)
[2019-08-30] MEDS: fentaNYL 100 MCG/2 ML Ampul IV (12:18)
[2019-08-30] MEDS: Oxytocin 30 units/NS 500 ml 30 UNITS/500 ML IV.SOLN 334 UNITS IV (14:05)
--- NOTE | 2019-08-30 14:17 | HP.PCM_ITS ---
History and Physical Date of Admission: 08/30/19 [facility] [place] ANTEPARTUM RECORD - HISTORY AND PHYSICAL (08/30/2019) Name: LESLIEBELÉN BUTLER OB Physician: CLARI History of This : This is a 28-year-old G4, P2 Ab1 who presents for induction at 39 weeks gestation. care has been remarkable for gestational hypertension. 's Physician: Lizeth Garcia ...................................................................... : 1990 Age: 28 Address: [address] [place] [address] Phone: H) [phone] Insurance Carrier: [facility] [employer] [facility] [id number] Emergency Contact: MATT NELSON/SPOUSE [phone] ...................................................................... Final KEVIN: 09/05/19 By Ultrasound: 7 weeks 6 days PARITY: (G-Total Pregnancies P-Fullterm,Premature,Induced AB,Spont AB, Ectopics, Multiple,Living) KEVIN CONFIRMATION: By LMP: 11/12/18 Initial Exam: 08/19/19 By First Ultrasound Exam: 09/05/19 Final KEVIN: 09/05/19 OB PROBLEM LIST: Refer to [facility] for oligohydramnoios (CESAR=4.7 cm) at about 20 weeks gestation. --normal fluid at [facility] ALLERGIES: No Known Drug Allergies MEDICATIONS: Colace 100 mg capsule 1 PO q HS Formula-DHA 28 mg-800 mcg-200 mg capsule daily ProAir HFA 90 mcg/actuation HFA aerosol inhaler as needed promethazine 25 mg tablet 1 PO QID Symbicort 160 mcg-4.5 mcg/actuation HFA aerosol inhaler Two puffs twice a day SOCIAL HISTORY: Smoking - Never Alcohol Use - socially not while Diet - balanced Diet, caffeine < 2 drinks per day and Lower carbs. Was Keto but not in pg. Water 2-3 liters. Lifestyle - Exercise - Active w kids. Less exercise since NVP. Enc 20 min walking daily. Preg DVD at home. 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 Illicit Drug Use - One time use of marijuana at libertarian December. Sexual Activity - Residence - One story home. lives w and kids. Place of - [place] Spouse-Sig Other Name - Matt Spouse-Sig Other Occupation - [employer]- for [employer]. Spouse-Sig Other Phone No - [phone] Children Name(s) - Jess Leung PRIOR DELIVERY HISTORY DEL DATE GEST LAB WT LB WT OZ TYPE ANES LABOR TX July 07 8 0 0 0 Sab None No 04 May 18 36 3 7 8 Vag None No 10 Nov 10 40 10 8 10 Vag Epidural No ANTEPARTUM FLOW CHART VISIT GE RTC FU F F RI U U DATE WK MD WKS HT PN HR M SS BP ED WT RI GL D EF ST __ ____ ___ __ __ ___ __ __ __ ___ __ __ __ ___ __ 08 Aug JMW 6 38 V + + 142/80 1+ 293 1+ - 3+ 80 -1 Jul JMW 6 37 V + + 136/78 sl 289 tr - 2+ 80 -2 Jul CH 1 37 V + + 164/72 1+ 288 1+ - 2+ 70 -2 Jul CH 1 36 V + + 132/80 sl 293 tr - ft 40 hi Jul CH 2 35 V + + 144/84 sl 287 tr - June JMW 1 32 + + 128/62 sl 283 tr - June JMW 1 32 + + 140/80 sl 284 2+ - 08 July 20 JMW 2 30 + + 126/74 sl 277 tr - Apr 12 JMW 4 20 + + 124/80 0 261 - - Apr 10 KW 2 + ++ 122/82 sl 253 ne ne Mar 04 CH 4 + O 112/90 0 247 - - 03 Jan 27 KW 4 on O 104/70 0 235 tr - ANTEPARTUM NOTE(S): Aug 29 2019: Good FM, induce gest HTN Aug 21 2019: Ctxs-occas, Induce per Request Aug 15 2019: see note Aug 08 2019: feeling well. GBS and LARC done. AM Jul 25 2019: See progress note Jul 17 2019: Good FM,Headache Better Jul 13 2019: see note, Mod BR; check PIH labs Jun 29 2019: CBC,OGCT Today,Sono Today Apr 18 2019: Sono Today,Good FM,Feeling Well, refer MFM Apr 04 2019: Declines AFP,CF; Anatomy scan in two weeks Feb 27 2019: feeling well. Still having lingering beavers and fatigue. Jan 23 2019: struggling with n/v maintaining with vit b6 and unisom. COMPREHENSIVE ANTEPARTUM NOTE(S): Aug 29 2019: Belén is here following call to Triage with c/o headache, Took Tylenol about 2pm w some relief only. No epigastric pain. BP at home 158/88. Baby moving less. NST done. BP check 142/80 large cuff left arm after resting 15 minutes. Edema 1+ in lower legs. Urine 1+ protein. NST read as reactive by Dr MOODY. States at hospital 30 min prior to delivery with last baby. LIves one hour away. NANCY. Aug 15 2019: Belén is here for a PNV. Good FM. 1+ edema in feet. Last night she almost called in to L for contractions that lasted 2 hours. 3-7 mins apart. She states they were not that painful and she felt better after a shower. Reports high BP throughout yesterday from 130's to 170's along with a constant headache. Has random contractions today. BP elevated 1-2+ protein in urine. Aug 15 2019: Wishes to have SVE. 2/70/-2. Reports +FM. [id number]. Last night reports BP at 160s/80s with christiano moyer that were strong, regular and lasted a long time. SHe almost called, but they stopped. BP on repeat today after laying for 5 minutes is 148/82. Denies headache, blurred vision, RUQ pain or edema. Feeling well, but with protein in urine will get PIH labs. Will call with results. To return in 1 week for routine visit and reminded of signs of labor. - Aug 14 2019: H taken to OB. tkg Aug 08 2019: BP WNL today. Reports 2 elevated pressures at home, but after rest and relaxation it would decrease to WNL. Will continue to monitor. Reports +FM. FHR 135. Discussed signs of labor and her going before her due date with both of her previous pregnancies. SVE today per wishes with ft/40/high but very soft and midposition. GBS collected and will review at next visit. To start weekly appts. - Jul 25 2019: Belén presents for her PNV. Initial BP sitting Lt arm Lg cuff is 144/84. She reports intermittent BEAVERS's that typically respond well to Tylenol. Pt sts her lower extremity edema has lessened since last week. She also reports noting a frequent LUQ abd discomfort at least once/day/ She describes it as feeling like a side ache, sharp pain. Repeat BP Rt arm,Lg cuff lying on Lt side is 120/66. JT Jul 25 2019: Having a girl. Edema is better than last week. Headache goes away with Tylenol, water and rest. BP is better with rest. At home trying to rest as much as possible with a toddler. Discussed her last baby coming early on its own with high bloodpressure. SHe hopes she goes on her own this time as well. Discussed ROM and regular UC. To return in 2 weeks for GBS swab and PNV. GBS reviewed. - Jul 13 2019: Viviane is being seen for PNV. Pt is feeling well but does complain of headache, blurry vision, lightheadedness and increased swelling in the evenings. Pt states Tylenol takes her headaches away but she normally also takes a nap. Pt has been taking blood pressures at home, her highest was 146/87. Left side lying 104/60. AM May 15 2020: Viviane tele appt today due to Covid-19 precautions. Had appt with MFM scheduled tomorrow at 24wks for repeat growth US and for limited anatomy views. They called and let her know since her alst ultrasound was normal she could push off her appt for a couple of weeks. Would prefer to come to us. Reviewed last report and CESAR normal. She really wants to cut back exposure wherever possible. Reports feeling well with good FM. Understands Covid-19 precautions and advised when to call. To have appt in 4 with 3rd trimester labs, glucola to be drank at the beginning of her visit. OKayed to have repeat US in our office that day followed by appt. Reviewed office still being open and nurse triage line with provider client relationship manager 13/09. 11 minutes spent on the phone. - Apr 04 2019: Feeling well; denies cramping, UCs, VB, LOF; discussed safety, warning signs, s/s PTL; RTO 2 weeks for PNV, Comprehensive US - KVW Feb 27 2019: Here for routine PNV. FHR 158 .Feels well. Had facial swelling in the morning, but goes away. Had this in previous pregnancies as well, but started to increase at the end. Reports numb tingling fingers, but with holding them upright and exercising them they feel better. Discussed carpal tunnel syndrome in and if hands start to swell can make it worse. Is not doing asthma logs because it is very well controlled now with steroid inhaler. Will start taking 81mg ASA daily now. Reviewed previous notes. Discussed IOL at 37-38 weeks if GHTN continues. Went into labor at 36.4 weeks with last , but had been planned early IOL. Has no other questions or concerns. Will return in 4 weeks for routine PNV with KW, okay with switching between CNMS. - Feb 21 2019: (m,f,*) Here for routine PNV. Asthma logs? Now at 12 weeks agreeable to baby ASA daily for hx of GHTN and BMI. Discussed labs including positive marijuana screan and the need for repeat UDS at 3rd trimester labs. Willr eturn in 4 weeks with KW for routine PNV. - Jan 23 2019: Feeling generally well; denies cramping, VB, LOF; continues w/intermittent nausea, rare vomiting, would like rx for Zofran; has seen nailhead operator, received rx for Symbicort, and s/s asthma improving, has ordered a peak flow and will begin keeping track; modified [place] body for exercize; [employer] CTA today; Dating US, labs including 1hr first trimester glucose for BMI >30 drawn and NOB visit today; growth on US inconsistent w/LMP, changed KEVIN to 09/05/19, 7w7d; declines AFP and CF screening; discussed warning signs, s/s PTL; RTO 4 weeks for PNV - KVW Jan 23 2019: Belén is here for NOB nurse visit with KEVIN September 05, [address] delivery [facility], unsure about epidural, using Lizeth Garcia for post discharge ped care and to breastfeed. 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 She had mild gestational hypertension at the end of other pg. Her last labor was 3 hours with rapid second stage and PP hemorrhage. Matt, her is a santiago for a [employer]. They are pleased about the pg. Belén has NKA to drugs, food or latex. She does have seasonal allergies especially in the Spring and Fall. Her diet is balanced w no caffeine and about 2 liters of water daily. She was on a keto diet but with has changed to just being careful with carbs. She's a lifetime non smoker, drinks alcohol socially but not during pg. About one month ago they were at a libertarian and smoked marijuana for the first time ever and none since. She's active with her family and was doing an exercise program prior to NVP. Enc to walk 20 min daily or do a yoga for pg DVD she has. Genetics Screening form completed noting no family issues. She declines AFP and CF tests. Her meds are vitamins and Symbicort daily for asthma. Warning signs in pg reviewed as well as OTC meds ok to take if needed, lifting restriction of 25#, the importance of protein in her diet, wearing her seatbelt low on her abdomen and reaching the office after hours. She was given a copy of What to Expect today as her copy was over 10 years old. US done today. labs drawn at 1145 including one hour glucose screening for BMI > 35. Glucose drank at 1045 am. She's had chickenpox . They do have cats and her family cares for the litter. No classes are needed. Enc to call w any concerns. Visit lasted approx 45 min. Collette FINN. Jan 09 2019: Belén is being seen for missed menses appt. Pt is new to facility. . UPT in office is positive. LMP 11-12-18. Menses are irregular to where pt states she takes tests a lot. Pt is about 8 weeks and 2 days. KEVIN 08-19-19. Pt took UPT 3 weeks ago which was negative, she did go out with friends and used marijuana and alcohol. Pt is not a regular marijuana user. Pt has asthma which does get worse with . She states she has had gestational hypertension in prior pregnancies as well as she did have some hemorrhaging with last . Pt believes last pap was 2016. Cultures due today, pap to have . Medications and allergies are up to date. AM Jan 09 2019: Cultures negative - KVW Jan 09 2019: Belén is a who is here today for missed menses appointment. 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 She has experienced a rrecent 40lb wt loss r/t Keto diet and exercize via the [employer] system; she was diagnosed with asthma, as a teen and has been using her inhaler 5 x daily; she does not wake up at night with symptoms; she does not check her peak flows; her insurance recently stopped covering her Advair. she has an appointment with a nailhead operator in [place] in January. She reports a history of gestational HTN w/third , and states she was on asa. She reports nausea in morning and evening, including middle of night, with frequent vomiting, approx 5 x daily. Head to toe exam today shows lungs with mild wheezes R anterior and posterior lobes, normal unlabored air movement; breast and pelvic exam were deferred, cultures obtained from urine; recommended checking peak flows, call if <400; e is undecided about AFP and CF screeening; Pt morena w/MD or Midwifery care for PNNV or Delivery; discussed nurse midwifery philophy and goals with physician back up: Literature provided, discussed OTC medications for minor discomforts, SAB precautions, practice patterns and schedule of visits, diet and exercise recommendations; will return in 2 weeks for US, NOB visit, and PNV - KVW REVIEW OF SYSTEMS: GENERAL - Denies fever, or chills SKIN - Denies rash, new skin lesions, or change in moles EYES - Denies blurred vision, or change in visual acuity EARS - Denies ear pain, or difficulty hearing NOSE - Denies nasal congestion, discharge, or bleeding MOUTH - Denies sore throat, or difficulty swallowing NECK - Denies pain or swelling RESPIRATORY - Denies shortness of breath, cough, wheezing CARDIOVASCULAR - Denies palpitations, chest pain, orthopnea, PND, peripheral edema, syncope or claudication GASTROINTESTINAL - Denies nausea, vomiting, diarrhea, constipation, Denies abdominal pain, melena and or bright red blood GENITOURINARY - Denies dysuria, frequency of urination, urgency, or hesitancy MUSCULOSKELETAL - Denies joint or muscle pain, or back pain NEUROLOGICAL - Denies localized numbness, weakness, or tingling PSYCHIATRIC - Denies depression, anxiety, substance abuse or suicide attempts ENDOCRINE - Denies heat or cold intolerance, weight loss or gain, increasing thirst HEMATO-IMMUNOLOGIC - Denies easy bruising, bleeding, oral ulcerations or recurrent infections GENETICS SCREENING: Age 35+ years: No Thalassemia: No Neural Tube Defect: No Down Syndrome: No JESUS-SACHS: No Sickle Cell Disease: No Hemophilia: No Musc. Dystrophy: No Cystic Fibrosis: No-declines screening Major Chorea: No Mental Retardation: No Fragile X: No Other genetic: No Other defects: No SABs/still births: Yes x1 Drugs since LMP: Yes INFECTION HISTORY: High risk AIDS: No High risk Hepatitis: No Exposed to TB: No Exposed to Herpes: No Rash/viral illness since LMP: No History of STD: No MENSTRUAL HISTORY: *Menses Regularity: Irregular* PAST SUMMARY: PARITY: 1. Total Pregnancies............ 4 2. Full Term Pregnancies........ 2 3. Premature.................... 0 4. Abortions - Induced.......... 0 5. Abortions - Spontaneous...... 1 6. Ectopics..................... 0 7. Multiple Births.............. 0 8. Living Children.............. 2 PAST #1: Date of :.................. 11/30/09 Gestation Weeks:................ 40 Length of labor(hours):......... 10 Sex:............................ M Weight-lbs:............... 8 Weight-oz:................ 10 Type of Delivery:............... Vag Type of Anesthesia:............. Epidural Place of Delivery:.............. [facility] Treatment of Labor?:.... No Comment: SLIGHT HYPERTENSION. PAST #2: Date of :.................. 06/21/16 Gestation Weeks:................ 8 Length of labor(hours):......... 0 Sex:............................ UNKNOWN Weight-lbs:............... 0 Weight-oz:................ 0 Type of Delivery:............... Sab Type of Anesthesia:............. None Place of Delivery:.............. [facility] Treatment of Labor?:.... No Comment: PAST #3: Date of :.................. 05/25/17 Gestation Weeks:................ 36 Length of labor(hours):......... 3 Sex:............................ F Weight-lbs:............... 7 Weight-oz:................ 8 Type of Delivery:............... Vag Type of Anesthesia:............. None Place of Delivery:.............. [facility] Treatment of Labor?:.... No Comment: PPHEM. PHYSICAL EXAMINATION General Appearence: 28 yo female in no acute distress Vital Signs: AF, VSS Heart: RRR without rubs or gallops Lungs: CTA x 2 Breasts: deferred Abdomen: gravid Pelvis: Cervix: 3/80 Presentation: cephalic Station: -1 Fetus: Size: AGA Movement: present Heart: present Labs for : BELÉN NELSON since 12/09/2018 ORDER DATEIN DESCRIPTION VALUE UNITS RANGE A+ COMMENT TYPE AND SCREEN 08/30/19 Reason for Type AND Screen/Red Cells: Labor [facility]~[address] [place], [place], [address]~ BLOOD TYPE GEL O POSITIVE N ANTIBODY SCREEN NEGATIVE N CBC W/DIFF, AUTOMATED 08/30/19 NOTE Original Ordering Provider: Jose Lofton WBC 10.2 K/mm3 4.4-11.0 RBC 4.31 M/mm3 4.2-5.4 HGB 11.4 g/dL 12.0-15.0 L HCT 36.0 % 37-47 L MCV 83.5 fL 81-99 MCH 26.5 pg 27.0-32.0 L MCHC 31.7 g/dL 32-36 L RDW CV 14.1 % 11.6-14.6 RDW SD 42.1 fl 35.1-43.9 PLT 277 K/mm3 150-450 MPV 10.2 fl 6.2-12.0 NEUT% 76.3 % 47-70 H LY% 15.6 % 19-41 L MONO% 5.2 % 0-10 EO% 1.8 % 0-5 BASO% 0.3 % 0-1 IM GRAN % 0.800 % 0.0-0.9 IG% - Immature Granulocytes (promyelocytes, myelocytes and metamyelocytes) > 1% indicates that a LEFT SHIFT is Present. ABSOLUTE NEUT 7.8 X10 3/uL 2.0-7.7 H ABSOLUTE LYMPH 1.59 X10 3/uL 0.83-4.51 NRBC, FLAGGED 0 % 0-5 OB TRIAGE PHYSICIAN NOTE 08/25/19 [facility] Medical Records Department [address] [place] [address] OB Triage Physician Note 08/25/19 1017 MR#: [id number] Acct: [id number] Name: BELÉN NELSON Rep #: [id number] : 1990 28 From: Jose Lofton MD PCP: Status:DEP CLI Y Location: [facility] History of Present Illness Date of Service: 08/20/19 Was patient seen by the physician?: No Reason For Visit: RULE OUT LABOR Date of Service: 08/20/19 Final KEVIN: 09/05/19 Gestational age: 37 Weeks and 4 Days History of Present Illness: 37+ week intrauterine presents with some contractions. care has been unremarkable. Allergies No Known Allergies Allergy (Verified 05/25/17 07:38) - Pertinent Past Medical History Medical History: Past Medical History (Last Reviewed 05/20/17 @ 09:44 by Isabel Man) Asthma Back problem Infertility PCOS (polycystic ovarian syndrome) NST - FHR Rate Baby A NST Reactive:: Yes FHR Category:: Category I Impression/Plan 37+ week intrauterine with false labor. No change after observation. Will discharge to home with routine instructions. 08/25/19 1022 Date Jose Lofton MD Cosigner Signature (if applicable): Date CC: Dr. Jose Lofton MD Signed Reviewed by JOSE hernandez CORONAVIRUS 19, EDWIN SCREEN 08/22/19 NOTE Original Ordering Provider: Jose Lofton COVID-19,EDWIN Not Detected Not Detect This test was developed and its performance characteristics determined by [email or web address]. This test has not been FDA cleared or approved. This test has been authorized by FDA under an Emergency Use Authorization (EUA). This test is only authorized for the duration of time the declaration that circumstances exist justifying the authorization of the emergency use of in vitro diagnostic tests for detection of SARS-CoV-2 virus and/or diagnosis of COVID-19 infection under section 564(b)(1) of the Act, 21 U.S.C. 360bbb-3(b)(1), unless the authorization is terminated or revoked sooner. When diagnostic testing is negative, the possibility of a false negative result should be considered in the context of a patient's recent exposures and the presence of clinical signs and symptoms consistent with COVID-19. An individual without symptoms of COVID-19 and who is not shedding SARS-CoV-2 virus would expect to have a negative (not detected) result in this assay. TESTING PERFORMED AT [facility]. ORIGINAL REPORT ON FILE IN LAB CONTAINS ADDITIONAL TEST SITE INFORMATION. Reviewed by JOSE ALANINE AMINOTRANSFERAS (SGPT) 08/15/19 NOTE Original Ordering Provider: TIANNA Beaver ALT 15 U/L 13-56 Reviewed by MADHU AST(SGOT) 08/15/19 NOTE Original Ordering Provider: TIANNA Beaver AST 11 U/L 15-37 L Reviewed by MADHU URIC ACID 08/15/19 NOTE Original Ordering Provider: TIANNA Beaver URIC 4.1 mg/dL 2.6-6.0 The drugs N-Acetylcysteine and Metamizole may falsely depress this assay. Reviewed by MADHU hernandez SERUM CREATININE AND GFR 08/15/19 NOTE Original Ordering Provider: TIANNA Beaver CREAT,SERUM 0.53 mg/dL 0.55-1.02 L The validity of the calculated GFR AND GFRAA in patients over 70 years has not been determined. Clinical correlation is essential. EST GFR 147 mL/min >60 Non- GFR Calc EST GFR - AA 177 mL/min >60 GFR Calc Reviewed by MADHU PARTIAL THROMBOPLAST TIME 08/15/19 NOTE Original Ordering Provider: TIANNA Beaver PTT 31.9 Seconds 24.1-36.2 Reviewed by MADHU PROTHROMBIN TIME W/INR 08/15/19 NOTE Original Ordering Provider: TIANNA Beaver PROTIME 12.4 SECONDS 11.7-14.9 INR 1.0 Reviewed by MADHU hernandez PROTEIN, URINE (RANDOM) 08/15/19 NOTE Original Ordering Provider: TIANNA Beaver PROTEIN,UR.RAN. 29.0 mg/dL <11.9 H Reviewed by MADHU CREATININE, URINE (RANDOM) 08/15/19 NOTE Original Ordering Provider: TIANNA Beaver UR CREAT 128.00 mg/dL NO RANGE EST. Reviewed by MADHU CBC-COMPLETE BLOOD CNT NO DIFF 08/15/19 NOTE Original Ordering Provider: TIANNA Beaver WBC 13.9 K/mm3 4.4-11.0 H RBC 4.49 M/mm3 4.2-5.4 HGB 12.1 g/dL 12.0-15.0 HCT 37.1 % 37-47 MCV 82.6 fL 81-99 MCH 26.9 pg 27.0-32.0 L MCHC 32.6 g/dL 32-36 RDW CV 14.0 % 11.6-14.6 w RDW SD 40.6 fl 35.1-43.9 PLT 301 K/mm3 150-450 MPV 10.0 fl 6.2-12.0 Reviewed by MADHU CULTURE, GROUP B STREPTOCOCCUS 08/08/19 NOTE Original Ordering Provider: TIANNA Beaver Comments: VAG/RECTUM SARAHY Culture Group B Beta Streptococcus is not isolated. Reviewed by JOSE PROTEIN, URINE 24HR 07/15/19 NOTE Original Ordering Provider: Jose Lofton UR COLLECT TIME 24.0 HOURS 24.0 UR TOTAL VOLUME 1350 mL URINE PROTEIN 10.9 mg/dL <11.9 24HR UR PROTEIN 147.2 mg/24HR <150 MG/24HR Reviewed by JOSE ALANINE AMINOTRANSFERAS (SGPT) 07/13/19 NOTE Original Ordering Provider: Jose Lofton ALT 17 U/L 13-56 Reviewed by JOSE AST(SGOT) 07/13/19 NOTE Original Ordering Provider: Jose Lofton AST 12 U/L 15-37 L Reviewed by JOSE URIC ACID 07/13/19 NOTE Original Ordering Provider: Jose Lofton URIC 2.7 mg/dL 2.6-6.0 The drugs N-Acetylcysteine and Metamizole may falsely depress this assay. Reviewed by JOSE SERUM CREATININE AND GFR 07/13/19 NOTE Original Ordering Provider: Jose Lofton CREAT,SERUM 0.41 mg/dL 0.55-1.02 L The validity of the calculated GFR AND GFRAA in patients over 70 years has not been determined. Clinical correlation is essential. EST GFR 195 mL/min >60 Non- GFR Calc EST GFR - AA 236 mL/min >60 GFR Calc Reviewed by JOSE PARTIAL THROMBOPLAST TIME 07/13/19 NOTE Original Ordering Provider: Jose Lofton PTT 31.5 Seconds 24.1-36.2 Reviewed by JOSE PROTHROMBIN TIME W/INR 07/13/19 NOTE Original Ordering Provider: Jose Lofton PROTIME 12.3 SECONDS 11.7-14.9 INR 1.0 Reviewed by JOSE CBC-COMPLETE BLOOD CNT NO DIFF 07/13/19 NOTE Original Ordering Provider: Jose Lofton WBC 11.0 K/mm3 4.4-11.0 RBC 4.31 M/mm3 4.2-5.4 HGB 11.7 g/dL 12.0-15.0 L HCT 36.5 % 37-47 L MCV 84.7 fL 81-99 MCH 27.1 pg 27.0-32.0 MCHC 32.1 g/dL 32-36 RDW CV 13.2 % 11.6-14.6 RDW SD 41.2 fl 35.1-43.9 PLT 301 K/mm3 150-450 MPV 9.8 fl 6.2-12.0 Reviewed by JOSE GLUCOSE CHALLENGE GEST 1H 50G 06/29/19 NOTEw Original Ordering Provider: Jose Lofton GLU GEST 50G 1H 96 mg/dL 70-140 Reviewed by JOSE CBC-COMPLETE BLOOD CNT NO DIFF 06/29/19 NOTE Original Ordering Provider: Jose Lofton WBC 13.9 K/mm3 4.4-11.0 H RBC 4.42 M/mm3 4.2-5.4 HGB 12.3 g/dL 12.0-15.0 HCT 38.2 % 37-47 MCV 86.4 fL 81-99 MCH 27.8 pg 27.0-32.0 MCHC 32.2 g/dL 32-36 RDW CV 13.3 % 11.6-14.6 RDW SD 41.2 fl 35.1-43.9 PLT 274 K/mm3 150-450 MPV 10.3 fl 6.2-12.0 Reviewed by JOSE RPR 01/23/19 NOTE Original Ordering Provider: TIANNA Funes RPR NONREACTIVE NONREACTIVE Reviewed by MICHELLE HEPATITIS C ANTIBODY 01/23/19 NOTE Original Ordering Provider: TIANNA Funes HEPATITIS C AB Non-Reactive Nonreactive Non Reactive: < 0.8 Equivocal: >/= 0.8 to < 1.0 Reactive: >/= 1.0 The CDC recommends that a reactive/equivocal HCV antibody result be followed up by the HCV Nucleic Acid Amplification test (156610) Reviewed by MICHELLE HEPATITIS B SURFACE ANTIGEN 01/23/19 NOTE w Original Ordering Provider: TIANNA Funes HEPB SURFACE AG Non-Reactive Nonreactive Reviewed by MICHELLE HIV - [facility] 01/23/19 NOTE Original Ordering Provider: TIANNA Funes HIV - [facility] Non-Reactive Nonreactive Reviewed by MICHELLE RUBELLA IGG 01/23/19 NOTE Original Ordering Provider: TIANNA Funes RUBELLA IGG 160.1 IU/mL Antibody results Interpretation of Immune Status < 5 IU/ml Presumed Non-immune 5 - < 10 IU/ml Equivocal > or = 10 IU/ml Presumed Immune Reviewed by MICHELLE T AND S-NO CHARGE W/PNP 01/23/19 Reason for Type AND Screen/Red Cells: Surgery? [facility]~[address] [place], [address]~ BLOOD TYPE GEL O POSITIVE N AB SCREEN GEL NEGATIVE N Reviewed by MICHELLE THYROID STIM HORMONE (TSH) 01/23/19 NOTE Original Ordering Provider: TIANNA Funes TSH 0.94 uIU/mL 0.358-3.74 Reviewed by MICHELLE GLUCOSE CHALLENGE GEST 1H 50G 01/23/19 NOTE Original Ordering Provider: TIANNA Funes GLU GEST 50G 1H 101 mg/dL 70-140 Reviewed by MICHELLE URINALYSIS, ROUTINE (DIPSTICK) 01/23/19 NOTE Original Ordering Provider: TIANNA Funes COLOR Yellow Yellow CLARITY Sl. Cloudy Clear GLUCOSE, UR Normal mg/dl Normal BILIRUBIN URINE Negative mg/dL Negative KETONE UR Negative mg/dl Negative SP.GR. DIPSTX 1.015 1.002-1.030 PH UR 7.0 5.0 - 8.0 PROT DIPSTX 15 mg/dl Negative H UROBILI 1 mg/dl Normal H NITRITE UR Negative Negative OCCULT BLOOD-UR Negative /ul Negative LEUK ESTERASE 100 /ul Negative H Reviewed by MICHELLE URINE DRUG SCREEN (VISTA) 01/23/19 NOTE Original Ordering Provider: TIANNA Funes TO BE CONFIRMED CONFIRMATORY TESTING FOR ALL POSITIVE URINE DRUG SCREEN RESULTS WILL ONLY BE SENT OUT UPON PHYSICIAN ORDER. VISTA Urine Drug Screen methods provide only preliminary analytical test results. A more specific alternate chemical method must be used in order to obtain a confirmed analytical result. Gas chromatography/mass spectrometery (GC/MS) is the preferred confirmatory method. Clinical consideration and professional judgement should be applied to any drug of abuse test result, particularly when preliminary positive results are used. URINE TCA TESTING MUST BE ORDERED SEPARATELY. USE TEST MNEMONIC: [facility] UDS PH 6 AMPHETAMINES NEGATIVE <1000 ng/mL BARBITIURATES NEGATIVE < 200 ng/mL BENZODIAZIPINE NEGATIVE < 200 ng/mL COCAINE NEGATIVE < 300 ng/mL ECSTACY NEGATIVE < 500 ng/mL METHADONE NEGATIVE < 300 ng/mL OPIATES NEGATIVE < 300 ng/mL PCP NEGATIVE < 25 ng/mL THC POSITIVE < 50 ng/mL H Reviewed by MICHELLE CBC W/DIFF, AUTOMATED 01/23/19 NOTE Original Ordering Provider: TIANNA Funes WBC 9.8 K/mm3 4.4-11.0 RBC 4.98 M/mm3 4.2-5.4 HGB 13.7 g/dL 12.0-15.0 HCT 42.4 % 37-47 MCV 85.1 fL 81-99 MCH 27.5 pg 27.0-32.0 MCHC 32.3 g/dL 32-36 RDW CV 13.2 % 11.6-14.6 RDW SD 41.4 fl 35.1-43.9 PLT 316 K/mm3 150-450 MPV 10.1 fl 6.2-12.0 NEUT% 73.5 % 47-70 H LY% 16.5 % 19-41 L MONO% 5.8 % 0-10 EO% 3.6 % 0-5 BASO% 0.3 % 0-1 IM GRAN % 0.300 % 0.0-0.9 IG% - Immature Granulocytes (promyelocytes, myelocytes and metamyelocytes) > 1% indicates that a LEFT SHIFT is Present. ABSOLUTE NEUT 7.2 X10 3/uL 2.0-7.7 ABSOLUTE LYMPH 1.61 X10 3/uL 0.83-4.51 NRBC, FLAGGED 0 % 0-[address]/NG [facility] BY PCR 01/09/19 NOTE Original Ordering Provider: TIANNA Funes CHLAM TRAC PCR Negative Negative NG BY PCR Negative Negative Reviewed by MICHELLE PROVIDER SIGNATURE ( REQUIRED) Impression /Plan: 39+ week intrauterine with gestational hypertension. Plan rupture of membranes and Pitocin. Preparations in progress for delivery.
--- NOTE | 2019-08-30 14:19 | OP.PCM_ITS ---
Vaginal Delivery Maternal Presentation: Medically Indicated Induction - Gestational Hypertension Method of Induction: Pitocin, Amniotomy Medical Reason for Induction: Gestational Hypertension Amniotic Membrane Rupture Type: Artificial Amniotic Fluid Description: Clear Final KEVIN: 09/05/19 Final KEVIN Source: US <20 weeks Gestational age: 39 Weeks and 1 Days Date of Procedure: 08/30/19 Pre-Operative Diagnosis: IUP, gestational hypertension Post-Operative Diagnosis: IUP, gestational hypertension Surgery/ Procedure Performed: Spontaneous Vaginal Delivery Type of Anesthesia: Epidural Description of Procedure: Spontaneous vaginal delivery of a viable female with Apgars of 9/10 from an occiput anterior presentation with clear amniotic fluid and normal three- vessel placenta. Cord around the neck x1 loose. No episiotomy or lacerations. Sponges okay. Delivery physician: Santiago Lofton MD. Presentation: Vertex Placental Delivery Description: Spontaneous Placenta Disposition: [facility] Cord Vessel Description: 3 Vessels Cord Entanglement: Around neck x 1, loose Estimated Blood Loss: 250 cc Infant A gender: Female (1 minute): 9 (5 minute): 10 Episiotomy Description: None Laceration: None Medications given after delivery: IV Pitocin, IM Methergin - History of hemorrhage Complications: None
--- NOTE | 2019-08-30 14:22 | DCINST_ITS ---
<Santiago Lofton - Last Filed: 08/30/19 14:22> May resume sexual activity in: 4-6 weeks Additional Activity Instructions:: Nothing in the vagina for 4-6 weeks. You may return to work/school in 6 weeks. Call your doctor if you observe: Inability to urinate, Inability to have a bowel movement, Using more than one pad per hour Additional Instructions: If you experience any of the following, contact your healthcare provider. * Bleeding that soaks a pad every hour for 2 hours * Fever 100.4 or higher * Unrelieved incision or abdominal pain * Swelling, redness, discharge or bleeding from your incision or episiotomy site * Your incision begins to separate * Problems urinating (including inability to urinate or burning while urinating). * Visual changes * Severe headache * Flu-like symptoms * Pain or redness in one of both of your breasts * Pain, warmth, tenderness or swelling in your legs, especially the calf area * Frequent nausea and vomiting * Symptoms of depression or anxiety If you experience any of the following, call 911 or go to the nearest Emergency Room. * Chest pain * Problems breathing * Seizure activity * Partial or complete paralysis of a body part, slurred speech, weakness or drooping of the face, or a sudden inability to walk or hold your balance Allergies/Adverse Reactions: Allergies No Known Allergies Allergy (Verified 05/25/17 07:38) Medications to take at Discharge albuterol sulfate 90 mcg/actuation aerosol inhaler 1 puff INHALATION Q6H 01/27/17 beclomethasone dipropionate 80 mcg/actuation aerosol inhaler 1 puff INHALATION BID 01/27/17 prenat.vits,stanton,lgz-hnrh-rhoac 1 tab PO QDAY 01/27/17 Nifedipine [Procardia Xl] 30 mg PO DAILY 30 Days #30 tab.er.24 08/31/19 The following prescriptions were given: Nifedipine [Procardia Xl] 30 mg PO DAILY 30 Days #30 tab.er.24 Transmission Status: Received by [facility]/pharmacy #[id number] Please Follow Up With: Santiago Lofton MD - [phone] When: Call to make an appointment with your doctor in 6 weeks. Primary Care Physician: Care Physician,No Primary [Primary Care Provider] - Test Results: Test results from this visit will be discussed in further detail at your follow- up appointment, if applicable. <Juan Antonio Rosas,Summer - Last Filed: 09/01/19 10:01> Discharge Diet: No Restrictions Additional Instructions: If you experience any of the following, contact your healthcare provider. * Bleeding that soaks a pad every hour for 2 hours * Fever 100.4 or higher * Unrelieved incision or abdominal pain * Swelling, redness, discharge or bleeding from your incision or e pisiotomy site * Your incision begins to separate * Problems urinating (including inability to urinate or burning while urinating). * Visual changes * Severe headache * Flu-like symptoms * Pain or redness in one of both of your breasts * Pain, warmth, tenderness or swelling in your legs, especially the calf area * Frequent nausea and vomiting * Symptoms of depression or anxiety If you experience any of the following, call 911 or go to the nearest Emergency Room. * Chest pain * Problems breathing * Seizure activity * Partial or complete paralysis of a body part, slurred speech, weakness or drooping of the face, or a sudden inability to walk or hold your balance Please Follow Up With: Santiago Lofton MD - Call office to schedule a nurse blood pressure check When: 7-10 days Test Results: Test results from this visit will be discussed in further detail at your follow- up appointment, if applicable.
--- NOTE | 2019-08-30 14:22 | PCM.DCVAG ---
<Santiago Lofton - Last Filed: 08/30/19 14:22> May resume sexual activity in: 4-6 weeks Additional Activity Instructions:: Nothing in the vagina for 4-6 weeks. You may return to work/school in 6 weeks. Call your doctor if you observe: Inability to urinate, Inability to have a bowel movement, Using more than one pad per hour Additional Instructions: If you experience any of the following, contact your healthcare provider. Bleeding that soaks a pad every hour for 2 hours Fever 100.4 or higher Unrelieved incision or abdominal pain Swelling, redness, discharge or bleeding from your incision or episiotomy site Your incision begins to separate Problems urinating (including inability to urinate or burning while urinating). Visual changes Severe headache Flu-like symptoms Pain or redness in one of both of your breasts Pain, warmth, tenderness or swelling in your legs, especially the calf area Frequent nausea and vomiting Symptoms of depression or anxiety If you experience any of the following, call 911 or go to the nearest Emergency Room. Chest pain Problems breathing Seizure activity Partial or complete paralysis of a body part, slurred speech, weakness or drooping of the face, or a sudden inability to walk or hold your balance Allergies/Adverse Reactions: Allergies No Known Allergies Allergy (Verified 05/25/17 07:38) Medications to take at Discharge albuterol sulfate 90 mcg/actuation aerosol inhaler 1 puff INHALATION Q6H 01/27/17 beclomethasone dipropionate 80 mcg/actuation aerosol inhaler 1 puff INHALATION BID 01/27/17 prenat.vits,stanton,hay-epth-gslfp 1 tab PO QDAY 01/27/17 Nifedipine [Procardia Xl] 30 mg PO DAILY 30 Days #30 tab.er.24 08/31/19 The following prescriptions were given: Nifedipine [Procardia Xl] 30 mg PO DAILY 30 Days #30 tab.er.24 Transmission Status: Received by [facility]/pharmacy #[id number] Please Follow Up With: Santiago Lofton MD - [phone] When: Call to make an appointment with your doctor in 6 weeks. Primary Care Physician: Care Physician,No Primary [Primary Care Provider] - Test Results: Test results from this visit will be discussed in further detail at your follow-up appointment, if applicable. <Carlotta Ryder - Last Filed: 09/01/19 10:01> Discharge Diet: No Restrictions Additional Instructions: If you experience any of the following, contact your healthcare provider. Bleeding that soaks a pad every hour for 2 hours Fever 100.4 or higher Unrelieved incision or abdominal pain Swelling, redness, discharge or bleeding from your incision or episiotomy site Your incision begins to separate Problems urinating (including inability to urinate or burning while urinating). Visual changes Severe headache Flu-like symptoms Pain or redness in one of both of your breasts Pain, warmth, tenderness or swelling in your legs, especially the calf area Frequent nausea and vomiting Symptoms of depression or anxiety If you experience any of the following, call 911 or go to the nearest Emergency Room. Chest pain Problems breathing Seizure activity Partial or complete paralysis of a body part, slurred speech, weakness or drooping of the face, or a sudden inability to walk or hold your balance Please Follow Up With: Santiago Lofton MD - Call office to schedule a nurse blood pressure check When: 7-10 days Test Results: Test results from this visit will be discussed in further detail at your follow-up appointment, if applicable.
[2019-08-30] MEDS: fentaNYL-bupivacaine (epidural) 100 ML BAG EPIDURAL (15:44)
[2019-08-30] MEDS: Ibuprofen 600 MG Tablet PO (17:13)
[2019-08-30] MEDS: Acetaminophen 500 MG Tablet 1000 MG PO (22:15)
[2019-08-31] VITALS (9 sets, daily range): BP systolic 122–160; BP diastolic 61–78; PULSE 66–90; RESP 16–18; TEMP 36.6–37.1; O2SAT 91–98
[2019-08-31] MEDS: Ibuprofen 600 MG Tablet PO ×2 (03:00→19:50)
[2019-08-31] MEDS: NIFEdipine 30 MG Tablet PO (03:59)
[2019-08-31] MEDS: 0.9% Saline Lock 10 ML Syringe IV ×2 (04:00→18:43)
[2019-08-31 04:20] LABS: Hematocrit 32.3 % (37-47); Hemoglobin 9.9 g/dL (12.0-15.0); Mean Corp Hgb Conc 30.7 g/dL (32-36); Mean Corpuscular Hgb 26.5 pg (27.0-32.0); Mean Corpuscular Volume 86.6 fL (81-99); Platelet Count 252 K/mm3 (150-450); RBC Distribution Width CV 14.6 % (11.6-14.6); RBC Distribution Width SD 44.8 fl (35.1-43.9); Red Blood Count 3.73 M/mm3 (4.2-5.4); White Blood Count 12.3 K/mm3 (4.4-11.0)
[2019-08-31 04:30] LABS: International Normalized Ratio 0.9; Partial Thromboplast Time 28.1 Seconds (24.1-36.2); Prothrombin Time (Protime)PT. 11.9 SECONDS (11.7-14.9)
[2019-08-31 04:37] LABS: AST(SGOT) 13 U/L (15-37); Alanine Aminotransfer ALT/SGPT 13 U/L (13-56); Creatinine, Serum 0.68 mg/dL (0.55-1.02); EST Glomerular Filtration Rate 109 mL/min (>60); Est Glom Filt Rate - Afr Amer 132 mL/min (>60); Estimated Creatinine Clearance 125.36 ml/min; Uric Acid 4.5 mg/dL (2.6-6.0)
--- NOTE | 2019-08-31 17:28 | PN.OBGYN_ITS ---
Subjective: Patient without complaints. Minimal vaginal bleeding. Breast-feeding going well. Some elevated blood pressures overnight but PIH labs were normal. Low- dose Procardia started. Blood pressures okay now. - Physical Exam Vitals/I&O's: Vital Signs Temp Pulse Resp BP Pulse Ox 97.8 F 88 18 134/78 H 98 08/31/19 13:17 08/31/19 13:17 08/31/19 13:17 08/31/19 13:17 08/31/19 02:56 Oxygen Delivery Method Room Air Weight: 299 lb 2 oz Body Mass Index (BMI) 45.4 Intake and Output for Last 24 Hours 08/29/19 08/30/19 08/31/19 23:59 23:59 23:59 Intake Total 1031.23 / 1031.23 Balance 1031.23 / 1031.23 Laboratory Results 08/31/19 04:05: WBC 12.3 H, RBC 3.73 L, Hgb 9.9 L, Hct 32.3 L, MCV 86.6, MCH 26.5 L, MCHC 30.7 L, RDW Std Deviation 44.8 H, RDW Coeff of Nancy 14.6, Plt Count 252, MPV 10.0 08/31/19 04:05: PT 11.9, INR 0.9, APTT 28.1 08/31/19 04:05: Creatinine 0.68, Estim Creat Clear Calc 125.36, Est GFR (MDRD) Af Amer 132, Est GFR (MDRD) Non-Af 109, Uric Acid 4.5, AST 13 L, ALT 13 Current Medications Acetaminophen (Tylenol) 1,000 mg PO Q8H PRN PRN PRN Reason: Pain 1-10 or Fever Last Admin: 08/30/19 22:15 Dose: 1,000 mg Documented by: Albuterol Sulfate (Ventolin Aerosols) 2.5 mg INHALATION Q6HWA.RT RODRIGUE Last Admin: 08/30/19 20:00 Dose: Not Given Documented by: Bisacodyl (Dulcolax) 10 mg RECTAL UD PRN PRN Reason: If no BM Budesonide (Pulmicort Aerosol) 0.5 mg INHALATION Q12H.RT RODRIGUE Last Admin: 08/30/19 20:00 Dose: Not Given Documented by: Dibucaine (Dibucaine) 1 applic TOPICAL TID PRN PRN; Protocol PRN Reason: Discomfort Hydrocortisone (Hytone) 1 applic TOPICAL TID PRN PRN; Protocol PRN Reason: Discomfort Ibuprofen (Motrin) 600 mg PO Q8H PRN PRN PRN Reason: Pain Score 1-11/30 Last Admin: 08/31/19 03:00 Dose: 600 mg Documented by: Nifedipine (Procardia Xl) 30 mg PO DAILY RODRIGUE Last Admin: 08/31/19 03:59 Dose: 30 mg Documented by: Ondansetron HCl (Zofran) 4 mg IV Q4H PRN PRN PRN Reason: Nausea Senna/Docusate Sodium (Senokot-S, Jayla-Colace) 1 - 2 tablet PO DAILY PRN PRN PRN Reason: Constipation Simethicone (Mylicon) 80 mg PO PCHS PRN PRN Reason: Indigestion/Stomach pain Sodium Chloride () 10 ml IV PRN PRN PRN Reason: iv flush Last Admin: 08/31/19 04:00 Dose: 10 ml Documented by: Medical Necessity - Tobacco Use Smoking Status: Never smoker Assessment/Plan All Active Problems (Last Reviewed 05/20/17 @ 09:44 by Isabel Man) 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 Continuing present care. We will continue Procardia at home for 2 to 6 weeks.
[2019-09-01 02:45] VITALS: BP 125/74; PULSE 75; RESP 16; TEMP 36.1; O2SAT 98
[2019-09-01 02:50] VITALS: BP 125/64; PULSE 73
[2019-09-01] MEDS: Ibuprofen 600 MG Tablet PO (06:53)
[2019-09-01 08:31] VITALS: BP 138/71; PULSE 86; RESP 18; TEMP 36.6; O2SAT 98
[2019-09-01 08:33] VITALS: BP 138/71; PULSE 80
[2019-09-01] MEDS: NIFEdipine 30 MG Tablet PO (08:39)
--- NOTE | 2019-09-01 10:39 | PCM.PN.BLA ---
Progress Note Visited room twice this morning however patient not in room. Will attempt to revisit later today. STROKE Vital Signs/Narrative: Vital Signs Temp Pulse Resp BP BP Pulse Ox 09/01/19 08:33 80 138/71 H 09/01/19 08:31 97.9 F 86 18 138/71 H 98
[2019-09-01 14:00] VITALS: BP 137/71; PULSE 82; RESP 16; TEMP 36.8; O2SAT 99
[2019-09-01 14:27] VITALS: BP 137/71; PULSE 86
--- NOTE | 2019-09-01 17:42 | PCM.PN.OB ---
Subjective: Belén reports feeling overwhelmed. Her daughter is in the special care nursery on antibiotics and she is concerned about the tachypnea. Belén is supported by her who is outside with her two older kids this afternoon. She denies headaches, vision changes, shortness of breath, abdominal pain, heavy lochia. She has no complaints. Objective: AVSS - Physical Exam Vitals/I&O's: Vital Signs Temp Pulse Resp BP Pulse Ox 98.3 F 86 16 137/71 H 99 09/01/19 14:00 09/01/19 14:27 09/01/19 14:00 09/01/19 14:27 09/01/19 14:00 Oxygen Delivery Method Room Air Weight: 135.681 kg Body Mass Index (BMI) 45.4 Intake and Output for Last 24 Hours 08/30/19 08/31/19 09/01/19 23:59 23:59 23:59 Intake Total 1531.23 / 1531.23 Balance 1531.23 / 1531.23 General: Alert, Oriented x3, Cooperative, No apparent distress HEENT: Atraumatic, Normocephalic Lungs: Normal air movement Abdomen: - - Fundus firm and nontender Extremities: No Calf Tenderness, - - + 1 b/l LE edema, Neurological: Neuro grossly intact Psych/Mental Status: Normal Affect, Appropriate, Alert and oriented to time, place, person, mood and affect Medical Necessity - Tobacco Use Smoking Status: Never smoker Assessment/Plan All Active Problems (Last Reviewed 05/20/17 @ 09:44 by Isabel Man) 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 -Support and encouragement offered -D/c to hotel -Reviewed si/sx preeclampsia -f/u for BP check in 7-10 days
== END 2019-09-01 17:00 | disposition home or self-care (01) | DRG 807 ==
PROVIDERS: Admitting Provider Obstetrics & Gynecology; Referring Provider Obstetrics & Gynecology; Visit Provider Obstetrics & Gynecology
DX: O13.4 Gestational [pregnancy-induced] hypertension without significant proteinuria, complicating childbirth (principal); Z37.0 Single live birth; O69.81X0 Labor and delivery complicated by cord around neck, without compression, not applicable or unspecified; O99.52 Diseases of the respiratory system complicating childbirth; J45.909 Unspecified asthma, uncomplicated; Z3A.39 39 weeks gestation of pregnancy; Z87.59 Personal history of other complications of pregnancy, childbirth and the puerperium
CPT/HCPCS: 59025; 59050; 82565; 84450; 84460; 84550; 85025; 85027; 85610; 85730; 86850; 86900; 86901; 99218; J7120; A4216; G0378